=== PATIENT | female | born 1960 | race Caucasian/White ===

== ENCOUNTER 2021-04-24 04:47 | Emergency (ER) | payer MEDICAID, SELFPAY ==
--- NOTE | ~2021-04-24 | XR_ITS ---
XR elbow RT min 3V 04/24/2021 05:14 Indication: Right elbow pain. Previous fracture with surgery. Numbness in the fingers. Procedure: 4 views of the right elbow Comparison: No prior studies for comparison. Findings: There is an age-indeterminate radial head fracture. There are loose bodies adjacent to the joint space, consistent with remote trauma. There is a metallic lilliam transfixing the visualized aspect s of the ulna. Possible small effusion. Impression: 1: Age-indeterminate nondisplaced radial head fracture. 2: Multiple loose bodies adjacent to the joint space may relate to remote trauma and/or degenerative change. Reviewed, dictated and finalized at location A. [facility]KER Impression: 1: Age-indeterminate nondisplaced radial head fracture. 2: Multiple loose bodies adjacent to the joint space may relate to remote traum a and/or degenerative change.
[2021-04-24 04:44] VITALS: BP 143/99; PULSE 91; RESP 17; O2SAT 100
--- NOTE | 2021-04-24 04:58 | ED.GENADULT ---
HPI - General Adult General Chief complaint: Headache Stated complaint: RIVERA, RT ARM PAIN Source: patient, EMS and RN notes reviewed Mode of arrival: EMS Limitations: no limitations History of Present Illness HPI narrative: 60-year-old female presented to the emergency department by EMS for evaluation of headache for the last 3 hours and chronic right elbow pain. Patient reports her headache is similar to her previous migraines. Patient denies any difference from this headache from her typical migraine. Patient states she does not have any home medications to treat it. Patient is also complaining of chronic right elbow pain. Patient reports last year she had 2 falls during which she injured her right wrist and right elbow. Patient reports she did have surgical repair of the right elbow. Patient reports he is unsatisfied with the way the right elbow has healed. Patient states she is going to have outpatient follow-up but is requesting an x-ray due to persistently worsening pain of the right elbow. Patient denies any acute falls or injuries. Related Data Allergies Allergy/AdvReac Type Severity Reaction Status Date / Time ketorolac [From Toradol] Allergy Itching Verified 04/24/21 04:59 Penicillins Allergy Itching Verified 04/24/21 04:59 Exam Narrative: APPEARANCE: Well appearing, no pain, no distress, well-nourished. HEAD: normocephalic, atraumatic. NECK: Supple. No adenopathy, no masses. RESPIRATORY: Airway patent, respirations nonlabored. Clear to auscultation bilaterally, no rales, rhonchi, wheezing. CARDIOVASCULAR: Regular rate and rhythm without murmurs rubs or gallops. ABDOMINAL: Soft, nontender, nondistended, normal bowel sounds MUSCULOSKELETAL: Moves all extremities. Some tenderness to the right elbow with palpation. Normal range of motion. NEURO: Alert. Cranial nerves II through XII intact. Good gait. Good coordination SKIN: Warm, dry. Normal Color PSYCHIATRIC: Normal affect/mood. Course Course Emergency Course: Patient was updated the results of her x-rays. Patient states that her headache was improved. Patient was provided a small prescription for Fioricet for home. Patient states that she is going to follow-up with her orthopedic physician. All questions and concerns were addressed. Patient was in no distress at time of discharge from the emerge department. Vital Signs Vital signs: Vital Signs Pulse Rate 91 04/24/21 04:44 Respiratory Rate 17 04/24/21 04:44 Blood Pressure 143/99 H 04/24/21 04:44 Pulse Oximetry 100 04/24/21 04:44 Pulse Rate 85 04/24/21 05:58 Respiratory Rate 22 H 04/24/21 05:58 Blood Pressure 152/98 H 04/24/21 05:58 Pulse Oximetry 100 04/24/21 05:58 Medical Decision Making Medical Records Medical records reviewed: Yes I reviewed the external patient's medical records. Vital Signs Vital Signs: Vital Signs Pulse Rate 91 04/24/21 04:44 Respiratory Rate 17 04/24/21 04:44 Blood Pressure 143/99 H 04/24/21 04:44 Pulse Oximetry 100 04/24/21 04:44 Pulse Rate 85 04/24/21 05:58 Respiratory Rate 22 H 04/24/21 05:58 Blood Pressure 152/98 H 04/24/21 05:58 Pulse Oximetry 100 04/24/21 05:58 Lab Data Lab results reviewed: Yes I reviewed the patient's lab results. Imaging Data My impression: Elbow x-ray: Postoperative changes, arthritis. No acute fracture or dislocation Radiologist's impression: Impressions Elbow X-Ray 04/24/21 08:10 Impression: 1: Age-indeterminate nondisplaced radial head fracture. 2: Multiple loose bodies adjacent to the joint space may relate to remote trauma and/or degenerative change. Discharge Plan Discharge Clinical Impression: Elbow pain, right Migraine Qualifiers: Migraine type: unspecified Status migrainosus presence: without status migrainosus Intractability: not intractable Qualified Code(s): G43.909 - Migraine, unspecified, not intractable, without status migrainosus Patient Disposition:
[2021-04-24] MEDS: SODIUM CHLORIDE 0.9% IV 1,000 ML 999 ML IV CONT (05:46)
[2021-04-24] MEDS: ACETAMINOPHEN/BUTALBITAL/CAFFEINE 325-50-40 MG TABLET (FIORICET) 2 TAB PO (05:46)
[2021-04-24 05:58] VITALS: BP 152/98; PULSE 85; RESP 22; O2SAT 100
--- NOTE | 2021-05-16 03:48 | PC.NURSE ---
Late Entry: Fluids stopped in ED prior to discharge.
== END 2021-04-24 08:02 | disposition home or self-care (01) ==
PROVIDERS: Emergency Provider Emergency Medicine
DX: G43.909 Migraine, unspecified, not intractable, without status migrainosus (principal); M25.521 Pain in right elbow; R93.6 Abnormal findings on diagnostic imaging of limbs
CPT/HCPCS: 73080; 96360; 96361; 99283; A9270; J7030